=== PATIENT | male | born 1990 | race Caucasian/White ===

== ENCOUNTER 2022-01-08 12:32 | Emergency (ER) | payer BC ==
[~2022-01-08] VITALS: Ht 180.3 cm; Wt 103.9 kg
[2022-01-08 12:32] VITALS: BP_SYST 147
--- NOTE | 2022-01-08 12:32 | NUR ---
BROUGHT BACK TO BED #7 AND TRIAGED .REPORT GIVEN TO RACHANA
--- NOTE | 2022-01-08 12:40 | NUR ---
Pt present to ED with complaint of palpitation. denies CP or SOB. 20g IV intitiated. Pt medicated. Will continue to monitor pt.
--- NOTE | 2022-01-08 12:50 | NUR ---
ED physician at the bedside to see pt
[2022-01-08] MEDS ORDERED: NACL 0.9% 1,000 ML IV ONE (13:00)
[2022-01-08] MEDS ORDERED: LORazepam 2 MG/ML VIAL IVP ONE (13:00)
[2022-01-08 13:14] LABS: BASOPHILS # (AUTO) 0.1 K/uL (0.0-0.2); BASOPHILS % (AUTO) 0.8 % (0.0-2.0); EOSINOPHILS # (AUTO) 0.1 K/uL (0.0-0.4); EOSINOPHILS % (AUTO) 1.3 % (0.0-4.0); HEMATOCRIT 42.8 % (36-54); HEMOGLOBIN 14.7 g/dL (14.0-18.0); LYMPHOCYTES # (AUTO) 2.6 K/uL (1.0-5.5); MEAN CORPUSCULAR HEMOGLOBIN 31 pg (27-31); MEAN CORPUSCULAR HGB CONC 34 % (32-36); MEAN CORPUSCULAR VOLUME 89 fL (79.0-98.0); MONOCYTES # (AUTO) 0.7 K/uL (0.0-1.0); MONOCYTES % (AUTO) 7.9 % (1.7-9.3); NEUTROPHILS # (AUTO) 4.9 K/uL (1.8-7.7); PLATELET COUNT (AUTO) 268 K/uL (130-430); RED CELL DISTRIBUTION WIDTH 12.7 % (9.0-15.0); WHITE BLOOD COUNT (AUTO) 8.2 K/uL (4.8-10.8)
[2022-01-08 13:25] LABS: ANION GAP 8 (5-15); CALCIUM 8.8 mg/dL (8.4-11.0); CHLORIDE 102 mmol/L (98-107); CREATININE 1.04 mg/dL (0.55-1.30); GLUCOSE 180 mg/dL (70-99); POTASSIUM 3.7 mmol/L (3.5-5.1); SODIUM SERUM 136 mmol/L (136-145); UREA NITROGEN, BLOOD 14 mg/dL (8-21)
[2022-01-08 13:28] LABS: GFR AFRICAN AMERICAN 107 mL/min (>90)
[2022-01-08 13:36] LABS: ALANINE AMINOTRANSFERASE 108 U/L (12-78); ASPARTATE AMINOTRANSFERASE 35 U/L (10-37); TOTAL BILIRUBIN 0.5 mg/dL (0.0-1.0)
--- NOTE | 2022-01-08 14:52 | NUR ---
Note melvione in EDM - 01/08/22 at 1454 by [email or web address] Pt present to ED with complaint of palpitation. denies CP or SOB. 20g IV intitiated. Pt medicated. Will continue to monitor pt.
--- NOTE | 2022-01-08 15:04 | NUR ---
Patient given written and verbal discharge instructions and verbalizes understanding. ER MD discussed with patient the results and treatment provided. Patient in stable condition. ID arm band removed. IV catheter removed intact and dressing applied, no active bleeding. Rx of given. Patient educated on pain management and to follow up with PMD. Pain Scale . Opportunity for questions provided and answered. Medication side effect fact sheet provided. Pt self ambulated out of ED in no acute distress.
[2022-01-08 15:05] VITALS: BP_SYST 119
== END 2022-01-08 15:04 | disposition home or self-care (01) ==
LOC: SED 12:32
DX: R00.2 Palpitations (principal); R42 Dizziness and giddiness; F41.9 Anxiety disorder, unspecified
CPT/HCPCS: 36415; 71045; 80053; 82962; 83880; 84484; 85025; 85379; 93005; 96361; 96374; 99285; J2060; J7030